=== PATIENT | male | born 1965 | race Caucasian/White ===

== ENCOUNTER → 2016-11-29 | Outpatient (REF) | LOC: WSOH 14:31 | DX: Z02.89 Encounter for other administrative examinations (principal) ==

== ENCOUNTER 2018-02-06 11:49 | Emergency (ER) | payer OTHER ==
[~2018-02-06] VITALS: Ht 188 cm; Wt 78.6 kg
[2018-02-06 11:53] VITALS: TEMP 97.6
[2018-02-06 13:00] VITALS: BP 106/70
[2018-02-06 15:22] VITALS: PULSE 81
== END 2018-02-06 15:27 | disposition home or self-care (01) ==
LOC: COL.ER 11:49
DX: S62.512B Displaced fracture of proximal phalanx of left thumb, initial encounter for open fracture (principal); F17.210 Nicotine dependence, cigarettes, uncomplicated; Z98.1 Arthrodesis status; W23.0XXA Caught, crushed, jammed, or pinched between moving objects, initial encounter; Y92.89 Other specified places as the place of occurrence of the external cause; Y99.0 Civilian activity done for income or pay

== ENCOUNTER 2022-02-15 06:38 | Outpatient (CLI) | payer OTHER ==
[~2022-02-15] VITALS: Ht 188 cm; Wt 83.7 kg
[2022-02-15] VITALS (7 sets, daily range): BP systolic 122–143; BP diastolic 66–92; PULSE 55–68; TEMP 97.4
[~2022-02-15 06:38] MED LIST: CYMBALTA 60MG60 MG PO
[2022-02-15] MEDS ORDERED: ATARAX 25MG25 MG/TAB PO (07:15)
[2022-02-15 09:12] LABS: GLUCOSE,CSF 63 mg/dL (40-70); TOTAL PROTEIN,CSF 43 mg/dL (15-45)
--- NOTE | 2022-02-15 09:35 | NUR ---
Pt verbalized comfort in discharging; LP site covered with bandaid and with no strikethrough or s/s of infection to surroundind skin; pt denied pain; ambulated to restroom prior to discharge and denied STEVENS or dizziness, gait and balance intact; discharge instructions/education went over with pt and canal driver, no questions; pt escorted via wheelchair to private vehicle.
[2022-02-15 09:47] LABS: CSF APPEARANCE CLEAR; CSF COLOR COLORLESS
[2022-02-15 09:48] LABS: CSF MONONUCLEAR 0 % (70-100); CSF POLYMORPHONUCLEAR 100 % (0-6); CSF RBC 16 /mm3 (0-0)
[2022-02-21 11:04] LABS: ALBUMIN CSF 27.6 mg/dL (<=27.0); ALBUMUN SERUM 4500 mg/dL (())
[2022-02-21 11:20] LABS: IGG,SERUM 956 mg/dL (()); IGG/ALBUMIN SERUM 0.21 (<=0.40)
[2022-02-21 11:24] LABS: CSF IGG/ALBUMIN 0.12 (<=0.21); CSF SYNTHESIS RATE 2.54 mg/24 h (<=12); CSF,IGG 3.4 mg/dL (<=8.1); CSF-IGG INDEX 0.57 (<=0.85)
[2022-02-21 12:02] LABS: CSF OLIG BD INTERPRETATION 0 bands (<2); SE OLIGOCLONAL BANDING 0 bands (())
== END 2022-02-15 09:35 | disposition home or self-care (01) ==
LOC: COL.RAD 06:38
PROVIDERS: Psychiatry & Neurology Neurology
DX: R90.82 White matter disease, unspecified (principal)

== ENCOUNTER 2022-08-21 21:21 | Emergency (ER) | payer OTHER ==
[~2022-08-21] VITALS: Ht 190.5 cm; Wt 84.1 kg
[~2022-08-21 21:21] MED LIST changes: +ATARAX 25MG25 MG/TAB PO
[2022-08-21 21:28] VITALS: TEMP 97.7
[2022-08-21 21:53] LABS: BASO # 0.1 K/mm3 (0.0-0.2); BASO % 0.8 % (0.0-2.0); EOS # 0.4 K/mm3 (0.0-0.7); EOS % 4.6 % (0.0-4.0); GRAN # 4.9 K/mm3 (1.4-6.5); GRAN % 52.6 % (42.2-75.2); HEMATOCRIT 44.3 % (42.0-52.0); HEMOGLOBIN 15.6 g/dl (13.5-18.0); LYMPH # 3.1 K/mm3 (1.2-3.4); LYMPH % 33.5 % (20.0-51.0); MEAN CELL VOLUME 92 fl (80.0-100.0); MEAN CORPUSCULAR HEMOGLOBIN 32 pg (27-31); MEAN CORPUSCULAR HGB CONC 35 g/dl (33.0-37.0); MONO # 0.8 K/mm3 (0.1-0.6); MONO % 8.2 % (1.7-9.3); PLATELET COUNT 224 K/mm3 (130-400); RED BLOOD COUNT 4.81 M/mm3 (4.20-5.60); REDCELL DISTRIBUTION WIDTH-CV 12.1 % (11.5-14.5)
[2022-08-21 22:06] LABS: ALANINE AMINOTRANSFERASE 16 U/L (0-55); ALBUMIN 4.2 gm/dL (3.5-5.0); ALKALINE PHOSPHATASE 66 U/L (40-150); ANION GAP 9 mmol/L (7-16); AST,SGOT 17 U/L (5-34); BILIRUBIN,TOTAL 0.3 mg/dL (0.2-1.2); BLOOD UREA NITROGEN 14 mg/dL (8-26); CALCIUM 9.2 mg/dL (8.4-10.2); CARBON DIOXIDE 27 mmol/L (22-29); CHLORIDE 106 mmol/L (98-107); CREATININE, serum 0.84 mg/dL (0.72-1.25); GLUCOSE 106 mg/dL (70-99); SODIUM 142 mmol/L (136-145); TOTAL PROTEIN 7.1 gm/dL (6.2-8.1)
[2022-08-21 22:17] LABS: TROPONIN-I < 0.010 ng/mL (0.00-0.033)
[2022-08-21 22:36] VITALS: BP 142/101; PULSE 66
== END 2022-08-21 22:37 | disposition home or self-care (01) ==
LOC: COL.ER 21:21
PROVIDERS: Nurse Practitioner Primary Care
DX: R03.0 Elevated blood-pressure reading, without diagnosis of hypertension (principal); F17.200 Nicotine dependence, unspecified, uncomplicated

== ENCOUNTER 2024-05-05 09:00 | Emergency (ER) | payer SELFPAY ==
[~2024-05-05] VITALS: Ht 190.5 cm; Wt 84.1 kg
[2024-05-05] MEDS ORDERED: Iohexol 300 - 100 ML VIAL IV ONE (09:09)
[2024-05-05] MEDS ORDERED: NS 100 ML IV SCH (09:09)
[2024-05-05] MEDS ORDERED: NS 1,000 ML IV ONE (09:15)
[2024-05-05 09:18] VITALS: TEMP 98.3
[2024-05-05 09:53] LABS: BASO # 0.1 K/mm3 (0.0-0.2); BASO % 0.8 % (0.0-2.0); EOS # 0.2 K/mm3 (0.0-0.7); EOS % 3.2 % (0.0-4.0); GRAN # 4.8 K/mm3 (1.4-6.5); GRAN % 64.5 % (42.2-75.2); HEMATOCRIT 40.4 % (42.0-52.0); HEMOGLOBIN 13.7 g/dl (13.5-18.0); INR 1.1 (0.8-3.0); LYMPH # 1.8 K/mm3 (1.2-3.4); LYMPH % 24.3 % (20.0-51.0); MEAN CELL VOLUME 95 fl (80.0-100.0); MEAN CORPUSCULAR HEMOGLOBIN 32 pg (27-31); MEAN CORPUSCULAR HGB CONC 34 g/dl (33.0-37.0); MEAN PLATELET VOLUME 10.8 fl (7.4-10.4); MONO # 0.5 K/mm3 (0.1-0.6); MONO % 7.1 % (1.7-9.3); PLATELET COUNT 183 K/mm3 (130-400); PROTHROMBIN TIME 11.8 SECONDS (9.7-12.8); RED BLOOD COUNT 4.25 M/mm3 (4.20-5.60); REDCELL DISTRIBUTION WIDTH-CV 12.7 % (11.5-14.5)
[2024-05-05 10:09] LABS: ALBUMIN 3.6 g/dL (3.5-5.0); BILIRUBIN,TOTAL 0.3 mg/dL (0.2-1.2); CALCIUM 8.1 mg/dL (8.4-10.2); CREATININE, serum 0.78 mg/dL (0.72-1.25); POTASSIUM 4.2 mEq/L (3.5-4.5); TOTAL PROTEIN 6.2 g/dl (6.2-8.1)
[2024-05-05 10:23] VITALS: BP 128/78; PULSE 54
[2024-05-05 10:52] LABS: COLLECTION METHOD CLEAN CATCH
[2024-05-05 11:11] LABS: PH 6.5 (5.0-8.5); URINE APPEARANCE CLEAR (CLEAR/HAZY); URINE BLOOD NEGATIVE (NEGATIVE); URINE COLOR YELLOW (YELLOW); URINE GLUCOSE NEGATIVE (NEGATIVE); URINE KETONE NEGATIVE (NEGATIVE); URINE NITRATE NEGATIVE (NEGATIVE); URINE PROTEIN(semi-quant) NEGATIVE (NEGATIVE)
== END 2024-05-05 10:35 | disposition left against medical advice (07) ==
LOC: COL.ER 09:00
PROVIDERS: Personal Emergency Response Attendant
DX: G45.9 Transient cerebral ischemic attack, unspecified (principal)
CPT/HCPCS: J7030; Q9967

== ENCOUNTER 2024-05-05 20:29 | Inpatient (IN) | payer SELFPAY ==
[~2024-05-05] VITALS: Ht 190.5 cm; Wt 79.7 kg
[2024-05-05 20:42] LABS: BASO # 0.1 K/mm3 (0.0-0.2); BASO % 0.6 % (0.0-2.0); EOS # 0.2 K/mm3 (0.0-0.7); GRAN # 5.3 K/mm3 (1.4-6.5); GRAN % 61.9 % (42.2-75.2); HEMATOCRIT 41.3 % (42.0-52.0); LYMPH # 2.4 K/mm3 (1.2-3.4); LYMPH % 28.5 % (20.0-51.0); MEAN CELL VOLUME 94 fl (80.0-100.0); MEAN CORPUSCULAR HEMOGLOBIN 32 pg (27-31); MEAN CORPUSCULAR HGB CONC 34 g/dl (33.0-37.0); MEAN PLATELET VOLUME 10.6 fl (7.4-10.4); MONO # 0.6 K/mm3 (0.1-0.6); MONO % 6.8 % (1.7-9.3); PLATELET COUNT 181 K/mm3 (130-400); RED BLOOD COUNT 4.39 M/mm3 (4.20-5.60); REDCELL DISTRIBUTION WIDTH-CV 12.6 % (11.5-14.5)
[2024-05-05] MEDS ORDERED: NS 1,000 ML IV ONE (20:45)
[2024-05-05 20:48] LABS: INR 1.1 (0.8-3.0); PROTHROMBIN TIME 12.1 SECONDS (9.7-12.8)
[2024-05-05] MEDS ORDERED: Iohexol 300 - 100 ML VIAL IV ONE (20:51)
[2024-05-05] MEDS ORDERED: NS 60 ML IV ONE (20:51)
[2024-05-05 21:03] LABS: ALANINE AMINOTRANSFERASE 11 U/L (0-55); ALKALINE PHOSPHATASE 54 U/L (40-150); ANION GAP 10 mmol/L (7-16); AST,SGOT 13 U/L (5-34); BILIRUBIN,TOTAL 0.5 mg/dL (0.2-1.2); BLOOD UREA NITROGEN 19 mg/dL (8-26); CALCIUM 9.4 mg/dL (8.4-10.2); CHLORIDE 109 mEq/L (98-107); CREATININE, serum 0.83 mg/dL (0.72-1.25); GLUCOSE 124 mg/dL (70-99); POTASSIUM 3.8 mEq/L (3.5-4.5); SODIUM 143 mEq/L (136-145); TOTAL PROTEIN 6.4 g/dl (6.2-8.1)
[2024-05-05 21:09] LABS: TROPONIN-I < 0.010 ng/mL (0.00-0.033)
[2024-05-06] VITALS (7 sets, daily range): BP systolic 112–159; BP diastolic 79–92; PULSE 48–79; TEMP 97.6–98.2
[2024-05-06] MEDS ORDERED: NS 1,000 ML IV SCH ×2 (02:45→03:45)
[2024-05-06] MEDS ORDERED: Acetaminophen 325 MG TAB PO PRN (03:45)
[2024-05-06 05:00] LABS: BASO # 0.1 K/mm3 (0.0-0.2); BASO % 0.8 % (0.0-2.0); EOS # 0.3 K/mm3 (0.0-0.7); EOS % 3.3 % (0.0-4.0); GRAN # 3.4 K/mm3 (1.4-6.5); GRAN % 45.6 % (42.2-75.2); HEMATOCRIT 39.3 % (42.0-52.0); HEMOGLOBIN 13.2 g/dl (13.5-18.0); LYMPH # 3.2 K/mm3 (1.2-3.4); LYMPH % 42.2 % (20.0-51.0); MEAN CELL VOLUME 96 fl (80.0-100.0); MEAN CORPUSCULAR HEMOGLOBIN 32 pg (27-31); MEAN CORPUSCULAR HGB CONC 34 g/dl (33.0-37.0); MEAN PLATELET VOLUME 10.8 fl (7.4-10.4); MONO # 0.6 K/mm3 (0.1-0.6); MONO % 7.8 % (1.7-9.3); PLATELET COUNT 171 K/mm3 (130-400); RED BLOOD COUNT 4.09 M/mm3 (4.20-5.60); REDCELL DISTRIBUTION WIDTH-CV 12.6 % (11.5-14.5)
[2024-05-06 05:19] LABS: CALCIUM 8.6 mg/dL (8.4-10.2); CREATININE, serum 0.8 mg/dL (0.72-1.25); POTASSIUM 4.1 mEq/L (3.5-4.5)
[2024-05-06 05:30] LABS: COLLECTION METHOD CLEAN CATCH
[2024-05-06 05:45] LABS: URINE APPEARANCE CLEAR (CLEAR/HAZY); URINE BLOOD NEGATIVE (NEGATIVE); URINE COLOR YELLOW (YELLOW); URINE GLUCOSE NEGATIVE (NEGATIVE); URINE KETONE NEGATIVE (NEGATIVE); URINE NITRATE NEGATIVE (NEGATIVE); URINE PROTEIN(semi-quant) NEGATIVE (NEGATIVE)
[2024-05-06 05:58] LABS: TRICYCLIC ANTIDEPRESS URINE NEGATIVE (NEGATIVE)
--- NOTE | 2024-05-06 07:53 | NUR ---
REPORT AND NEURO ASSESSMENT AT BEDSIDE. PT WAS REMOVING MONITORING EQUIPMENT WHEN NURSES ENTERED THE ROOM. WHEN I ASKED THE PATIENT WHAT HE WAS DOING, HE SAID HE WAS READY TO GET OUT OF HERE AND GO HOME. DISCUSSED WITH PATIENT THAT HE NEEDS TO STAY FOR FURTHER EVALUATION INCLUDING AN MRI. CT/CTA WAS NEGATIVE, BUT THE MRI COULD SHOW DAMAGE THE CT/CTA DID NOT SHOW. DISCUSSED WITH PATIENT THAT HE HAD STROKE SYMPTOMS TWICE IN ON DAY. THAT THE NEXT TIME HE COULD NOT BE GUERA AND BE DEBILITATED. PT AGREED TO STAY. PT REMAINS STABLE ON ROUNDS. NIH IS 0. NEURO EXAMINATION IS NEGATVIE. PT IS BRADICARDIC. PT STATES HE HAS BEEN TOLD THAT HE HAS A SLOW HEART RATE, BUT HAS NOT BEEN EVALUATED FURTHER. NO SIGN OF DISTRESS AT THIS TIME. CONTINUE PLAN OF CARE.
--- NOTE | 2024-05-06 09:27 | NUR ---
workers compensation examiner notes pt left AMA yesterday in the ER and attempted to leave the ICU this morning. SW attended clinical rounding and was informed pt can likely discharge today after further testing and was informed around 3-4pm by Dr. Martinez. workers compensation examiner met with pt to discuss discharge planning. He reports to live with his brother, Luis Antonio Rendon [phone] in [place]. He sees Dr. Azevedo for PCP needs and obtains medications from [facility] pharmacy with no difficulties. He states he does not have a DPOA-HC and is from Oct. He states he as an adult child, Marv Rendon in [place] and he does not have the contact, but reports Luis Antonio has it. Pt reports he is independent with ADLS and uses no DME. He has not had any concerns for mobility. Pt verified he does not have insurance and was open to [employer] talking with him to do a FAA. Pt would like to discharge today. SW left a voicemail to Financial Counselor's, Cale. Discharge Plan: home
--- NOTE | 2024-05-06 09:47 | NUR ---
Pt resting in bed with no complaints of pain or discomfort. VSS. IV infusing with normal saline freely. Upon entrance to room, pt was taking off monitors and stating "I want to leave". bobbin disker RN at bedside explaining the importance of staying at the hospital to ensure safety and minimize adverse events. Pt cooperated and agreed to stay. Pt is scheduled for an MRI this afternoon. Pt does not verbalize any needs, questions, or further complaints at this time. Bedsite neuro check completed with tie inspector RN, no change noted from previous assessments.
[2024-05-06] MEDS ORDERED: Gadoterate 20 ML VIAL IV ONE (11:25)
[2024-05-06] MEDS ORDERED: Atorvastatin 40 MG TAB PO ONE (13:15)
[2024-05-06] MEDS ORDERED: Clopidogrel 300 MG DOSE (75 mg x 4 tabs) PO ONE (13:15)
--- NOTE | 2024-05-06 13:56 | NUR ---
Patient noted to have difficulty with following and comprehending procedural instructions from staff while attempting to link cell phone to loop recorder. Neuro checks otherwise unchanged from previous assessments. Dr. Martinez notified and will place a speech eval for a cognitive evaluation.
--- NOTE | 2024-05-06 17:00 | NUR ---
PATIENT ARRIVED AWAKE AND ALRT FROM ICU. PATIENT DENEIS ANY NEEDS OR COMPLAINTS AT THIS TIME.. PATIENT APPEARS TO HAVE A STEADY GAIT WHILE UP. PATIENT HAS EQUAL STRENGTH TO BILATERAL UPPER AND LOWER EXTREMITIES. PATIENT RESTING IN BED, CALL [facility]ARCO REACH , FALL PRECAUTIONS IN PLACE.
--- NOTE | 2024-05-06 17:09 | NUR ---
Pt discharged from ICU to medical floor. Pt transferred to medical floor via wheelchair with no difficulty. plastic process technician met in room with patient. RN notified of arrival. Pt belongings placed in cabinet in room. Pt phone in pt hand.
--- NOTE | 2024-05-06 20:40 | NUR ---
Initial shift assessment done-awake/alert,, oriented x4, is vague with his answers,not very specific,pleasant, hopes to go home soon, did say he lives with his brother so he would not be alone. Up to bathroom, steady on feet. tele on- sara 57/min,, loop recorder dressing dry and intact, NPO after MN for MARIO
[2024-05-06] MEDS ORDERED: Cephalexin 500 MG CAP PO SCH (21:00)
[2024-05-07] VITALS (9 sets, daily range): BP systolic 117–141; BP diastolic 53–93; PULSE 49–56; TEMP 97.7–98.7
[2024-05-07] MEDS ORDERED: NS 1,000 ML IV SCH (05:00)
--- NOTE | 2024-05-07 06:13 | NUR ---
Did sleep well from around MN to now-- NPO
[2024-05-07 06:46] LABS: BASO # 0.1 K/mm3 (0.0-0.2); BASO % 0.8 % (0.0-2.0); EOS # 0.2 K/mm3 (0.0-0.7); EOS % 2.1 % (0.0-4.0); GRAN # 4.6 K/mm3 (1.4-6.5); GRAN % 57.9 % (42.2-75.2); HEMATOCRIT 40.3 % (42.0-52.0); HEMOGLOBIN 13.8 g/dl (13.5-18.0); LYMPH # 2.5 K/mm3 (1.2-3.4); LYMPH % 31.7 % (20.0-51.0); MEAN CELL VOLUME 93 fl (80.0-100.0); MEAN CORPUSCULAR HEMOGLOBIN 32 pg (27-31); MEAN CORPUSCULAR HGB CONC 34 g/dl (33.0-37.0); MEAN PLATELET VOLUME 10.8 fl (7.4-10.4); MONO # 0.6 K/mm3 (0.1-0.6); MONO % 7.2 % (1.7-9.3); PLATELET COUNT 173 K/mm3 (130-400); RED BLOOD COUNT 4.34 M/mm3 (4.20-5.60); REDCELL DISTRIBUTION WIDTH-CV 12.3 % (11.5-14.5)
--- NOTE | 2024-05-07 07:34 | NUR ---
Bedside report received from CAN Pearl. Pt resting in bed awake with no complaints. Call light within reach.
[2024-05-07 07:51] LABS: CALCIUM 8.9 mg/dL (8.4-10.2); CHOLESTEROL RISK RATIO 5.1; CREATININE, serum 0.76 mg/dL (0.72-1.25)
[2024-05-07] MEDS ORDERED: 1/2 NS 1,000 ML IV SCH (08:00)
[2024-05-07] MEDS ORDERED: Clopidogrel 75 MG TAB PO SCH (09:00)
[2024-05-07] MEDS ORDERED: Lidocaine PF 2% (20 MG/ML) 5 ML VIAL ONE (10:36)
--- NOTE | 2024-05-07 11:20 | NUR ---
Pt back to floor from sleep lab technician. Post op vitals stable. Pt denies pain/discomfort. Call light within reach.
--- NOTE | 2024-05-07 11:20 | NUR ---
Pt back to Medical - bedside handoff performed with CAN Soto: vitals initiated and stable, pt awake and alert, call light in reach.
--- NOTE | 2024-05-07 11:28 | NUR ---
Pt awake in bed watchig tv. Shift assessment completed. VSS. INT to LFA patent with no swelling, redness, or drainage. Pt denies pain rating 0/10. Chest incision CDI covered with gauze and tape. Pt has no request at this time. Call light within reach.
[2024-05-07] MEDS ORDERED: PLAVIX 75MG TAB75 MG PO (12:56)
[2024-05-07] MEDS ORDERED: CEPHALEXIN500 M1 PO (12:56)
[2024-05-07] MEDS ORDERED: ASPIRIN 81M81 MG/TA2 PO (12:57)
[2024-05-07] MEDS ORDERED: LIPITOR 40MG TA40 MG PO (12:57)
--- NOTE | 2024-05-07 14:01 | NUR ---
Discharge instruction provided to pt and pt verbalized understanding of discharge paperwork. Pt removed INT to Lt forearm himself, this nurse assessed site and site was CDI. Pt stated he had no pain. Catheter tip assessed and was intact upon removal. Pt awaiting for family in ED entrance and this nurse offered for pt to wait on medical floor but pt refused.
--- NOTE | 2024-05-07 15:07 | NUR ---
Upon discharge pt A&Ox4, able to answer questions and respond to this nurse in full sentences. Pt stated that he wanted to wait in ED entrance for family and that he would call family members for ride. This nurse offered to call family and wait with pt, pt denied. Pt left medtronic box on floor and charge nurse Costa called emergency contacts to notify of item left behind. Family member requested to speak to this nurse regarding pt. This nurse spoke to ex - and explained pt request to sit alone in ED entrance while waiting for family.
[2024-05-07] MEDS ORDERED: Atorvastatin 40 MG TAB PO SCH (21:00)
== END 2024-05-07 14:00 | disposition home or self-care (01) | DRG 41 ==
LOC: COL.ER 20:29 → MEDICAL 23:55 → COL.ER 23:55 → ICU 23:55 → COL.ER 23:55 → ICU 23:55 → MEDICAL 05-06 16:45 → ICU 05-06 16:45 → MEDICAL 05-06 16:46
PROVIDERS: Emergency Medicine; Nurse Practitioner Family; ADMIT Internal Medicine
PROC: 0JH632Z Insertion of Monitoring Device into Chest Subcutaneous Tissue and Fascia, Percutaneous Approach (ICD-10-PCS; principal; 2024-05-05)
DX: I63.9 Cerebral infarction, unspecified (principal); G45.9 Transient cerebral ischemic attack, unspecified; R29.700 NIHSS score 0; R00.1 Bradycardia, unspecified; Z72.0 Tobacco use
CPT/HCPCS: A9575; C1764; J1650; J2704; J7030; Q3014; Q9967